=== PATIENT | male | born 1980 | race Caucasian/White ===

== ENCOUNTER → 2023-09-29 08:36 | Outpatient (CLI) | payer OTHER, SELFPAY ==
[2023-09-29 09:02] LABS: Add Manual Diff / Slide Review NO; Basophils Absolute Auto 100 /uL (0-100); Basophils Percent Auto 1.4 % (0-2); Eosinophils Absolute Auto 100 /uL (0-450); Eosinophils Percent Auto 1.8 % (2-4); Hematocrit 41.8 % (41-53); Hemoglobin 14.2 g/dL (13.5-17.5); Lymphocytes Absolute Auto 1800 /uL (1100-4500); Lymphocytes Percent Auto 42.4 % (25-40); Mean Corpuscular HGB Conc 33.9 % (30-36); Mean Corpuscular Hemoglobin 31.4 PG (26-34); Mean Corpuscular Volume 92.6 fL (80-100); Monocytes Absolute Auto 400 /uL (0-900); Monocytes Percent Auto 9.4 % (3-14); Neutrophils Absolute Auto 2000 /uL (1500-7000); Platelet Count 248 X10^3/uL (150-400); Red Blood Cell Count 4.51 X10^6/uL (4.5-5.9); Red Cell Distribution Width 12.4 % (11.6-14.8); White Blood Cell Count 4.3 X10^3/uL (4.5-11.0)
[2023-09-29 09:31] LABS: Alanine Aminotransferase 34 IU/L (<50); Albumin 4.5 g/dL (3.5-5.0); Albumin Globulin Ratio 1.5 (1.0-2.8); Alkaline Phosphatase 47 U/L (38-126); Aspartate Aminotransferase 37 IU/L (17-59); BUN Creatinine Ratio 18.6 (6-22); Bilirubin Total 0.6 mg/dL (0.2-1.3); Blood Urea Nitrogen 16 mg/dL (9-20); Calcium 9.7 mg/dL (8.4-10.2); Carbon Dioxide 31 mmol/L (22-32); Chloride 101 mmol/L (98-107); Cholesterol 185 mg/dL (140-199); Estimated Glomerular Filt Rate > 60 mL/min (>60); Glucose 103 mg/dL (70-100); HDL Cholesterol 53 mg/dL (40-60); HEMOLYSIS < 15 (0-50); LDL Cholesterol Calculated 116 mg/dL (<100); Potassium 4.5 mmol/L (3.4-5.1); Sodium 138 mmol/L (137-145); Total Protein 7.5 g/dL (6.3-8.2); Triglycerides 82 mg/dL (35-150)
[2023-09-29 09:51] LABS: TSH w/ Reflex to FT4 0.41 uIU/mL (0.47-4.68)
[2023-09-29 09:58] LABS: Testosterone 616 ng/dL (132-813)
== END ==
PROVIDERS: PCP Family Medicine; Referring Provider Family Medicine; Visit Provider Family Medicine
DX: R53.82 Chronic fatigue, unspecified (principal); F32.A Depression, unspecified; Z13.220 Encounter for screening for lipoid disorders
CPT/HCPCS: 36415; 80053; 80061; 84403; 84439; 84443; 85025

== ENCOUNTER 2025-07-07 08:41 | Day surgery (SDC) | payer OTHER, SELFPAY ==
--- NOTE | 2025-07-07 09:03 | P.HP_ITS ---
History of Present Illness
--- NOTE | 2025-07-07 09:03 | PM.HP.IH.1 ---
History of Present Illness History of Present Illness Date Patient Seen: 07/07/25 Time Patient Seen: 09:03 Chief complaint: Screening Colonoscopy Narrative: Phil is a 45-year-old man presents for a screening colonoscopy, his first. No family history of colon cancer. No melena or hematochezia. Meds Home Medications and Allergies Home Medications ?Medication ?Instructions ?Recorded ?Confirmed ?Type bupropion HCl 200 mg tablet,12 hr 200 mg PO DAILY #100 ea 09/30/24 09/30/24 Rx sustained-release sertraline 50 mg tablet 50 mg PO DAILY #100 tabs 09/30/24 09/30/24 Rx sodium,potassium,mag sulfates 17.5 See Rx Instructions PO .COMPLEX 06/05/25 Rx gram-3.13 gram-1.6 gram oral soln #354 mL (Suprep Bowel Prep Kit) Allergies Allergy/AdvReac Type Severity Reaction Status Date / Time No Known Drug Allergies Allergy Unverified 07/07/25 09:01 Exam Const General: healthy appearing Assessment & Plan Assessment and plan (1) Colon cancer screening: Status: Acute Plan Colonoscopy for colon cancer screening Time-Based Coding :: [TOTAL MINUTES] spent with patient and on the chart (including review of chart, obtaining history, exam, reviewing outside data, placing orders, documenting exam and treatment plan, and counseling patient) on [DATE]. [employer] Document charge(s): No
[2025-07-07 09:05] VITALS: BP 145/85; PULSE 50; RESP 16; TEMP 36.1; O2SAT 99
[2025-07-07] MEDS: LACTATED RINGERS 1,000 ML 42 ML IV (09:10)
--- NOTE | 2025-07-07 10:03 | P.OP.COLON_ITS ---
Operative Date/Time/Diagnoses
--- NOTE | 2025-07-07 10:03 | PM.OP.COLON ---
Operative Date/Time/Diagnoses Date of procedure: 07/07/25 Time of procedure: 10:03 Pre-op diagnosis: Colon cancer screening Post-op diagnosis: same Procedure & Clinicians Study performed: Colonoscopy Same procedure(s) as scheduled: Yes Surgeon: Daron Cruz Anesthesia Type: MAC +/- Procedure Notes Procedure in detail: Surgeon: Daron Cruz MD Anesthesia: Roberta Nelson CRNA Procedure: The patient was brought to the endoscopy suite, placed in left lateral decubitus position. The patient was connected to monitoring devices. A time-out was performed. Sedation was administered. Once the patient was adequately sedated, a digital rectal exam was performed. Mild mixed hemorrhoids were noted. The scope was then inserted and advanced to the cecum where the appendiceal orifice was identified and photographed. The scope was then slowly withdrawn over greater than 6 minutes. The mucosa was thoroughly inspected. There was a 5 mm polyp in the distal sigmoid colon removed with a cold snare. The scope was retroflexed in the rectum. No new abnormalities were found. The scope was straightened and removed. The patient was awakened and brought to recovery. Scope withdrawal time: 8 minutes Sedation time: 11 minutes Findings: 5 mm polyp in the distal sigmoid colon and mixed hemorrhoids Estimated Blood Loss: 5 Complications: none Post-procedure Disposition: PACU
[2025-07-07 10:05] VITALS: BP 139/62; PULSE 60; RESP 20; TEMP 36.3; O2SAT 97
[2025-07-07 10:15] VITALS: PULSE 69; RESP 23; O2SAT 98
[2025-07-07 10:18] VITALS: BP 131/87; PULSE 50; RESP 18; O2SAT 98
== END 2025-07-07 10:35 | disposition home or self-care (01) ==
PROVIDERS: PCP Family Medicine; Referring Provider Surgery; Visit Provider Surgery
PROC: 0DJD8ZZ Inspection of Lower Intestinal Tract, Via Natural or Artificial Opening Endoscopic (ICD-10-PCS; CPT 45378; principal; 2025-07-07 09:45)
DX: Z12.11 Encounter for screening for malignant neoplasm of colon (principal)
CPT/HCPCS: 45385; J2704; J7120